=== PATIENT | female | born 1990 | race African-American/Black ===

== ENCOUNTER 2019-06-03 13:27 | Emergency (ER) | payer OTHER ==
[~2019-06-03] VITALS: Ht 162.6 cm; Wt 49.9 kg
[2019-06-03 13:28] VITALS: Ht 162.6 cm; Wt 49.9 kg
[2019-06-03 13:56] LABS: microscopic required? NO
[2019-06-03 14:24] LABS: UA SPECIFIC GRAVITY <=1.005 (1.005-1.035); urine erythrocyte NEGATIVE (NEGATIVE)
[2019-06-03 14:35] LABS: ALBUMIN 3.6 g/dL (3.4-5.0); ALKALINE PHOSPHATASE 59 U/L (46-116); ALT/SGPT 85 U/L (14-59); AST/SGOT 85 U/L (15-37); BILIRUBIN TOTAL 0.4 mg/dL (0.20-1.00); CALCIUM 8.5 mg/dL (8.5-10.1); CARBON DIOXIDE 26.2 mmol/L (21-32); CHLORIDE SERUM 98 mmol/L (98-107); CREATININE SERUM 0.6 mg/dL (0.6-1.0); GFR1 > 60 mL/min; POTASSIUM SERUM 3.5 mmol/L (3.5-5.1); SODIUM SERUM 140 mmol/L (136-145)
[2019-06-03 14:37] LABS: AMPHETAMINE QUAL UR NONE DETECTED (See below)
[2019-06-03 14:38] LABS: PLATELET COUNT 166 x10^3mcL (130-400); RED CELL DISTRIBUTION WIDTH 12.8 % (11.5-14.5)
[2019-06-03 14:40] LABS: GLUCOSE SERUM 53 mg/dL (74-106)
[2019-06-04 07:37] VITALS: BP 110/77
== END 2019-06-04 08:17 | disposition short-term general hospital (02) ==
LOC: ED 13:27 → EDBD 13:27 → ED 06-04 08:17
PROVIDERS: Student in an Organized Health Care Education/Training Program
DX: T45.0X1A Poisoning by antiallergic and antiemetic drugs, accidental (unintentional), initial encounter (principal); R45.851 Suicidal ideations; X58.XXXA Exposure to other specified factors, initial encounter; Y93.89 Activity, other specified; Y92.89 Other specified places as the place of occurrence of the external cause; Y99.8 Other external cause status
CPT/HCPCS: 36415; 82962; G0480; J3490; J7030